=== PATIENT | female | born 1945 | race Caucasian/White ===

== ENCOUNTER 2018-07-18 06:19 | Inpatient (IN) ==
[2018-07-18] MEDS ORDERED: ONDANSETRON 4 MG/2 ML VIAL IV STA (06:46)
[2018-07-18] MEDS ORDERED: HYDROmorphone 2 MG/1 ML VIAL IV STA (06:46)
[2018-07-18] MEDS ORDERED: SODIUM CHLORIDE 0.9% 1,000 ML IV STA (06:46)
[2018-07-18] MEDS ORDERED: MORPHINE 4 MG/1 ML VIAL ONE (07:11)
[2018-07-18] MEDS ORDERED: MORPHINE 4 MG/1 ML VIAL IV STA ×2 (07:15→09:42)
[2018-07-18 07:27] LABS: Basophils # 0.1 10*3/uL (0.0-0.2); Basophils % 0.5 % (0.0-0.8); Eosinophils # 0.2 10*3/uL (0.0-0.87); Eosinophils % 2.1 % (0.00-10.9); Hematocrit 43.1 VOL% (35.7-47.0); Hemoglobin 14.1 GM/DL (12.0-16.0); Immature Granulocytes % 0.5 %; Immature Granulocytes Absolute 0.05 #; Lymphocytes # 1.3 10*3/uL (1.4-4.0); Lymphocytes % 13.2 % (21.3-54.2); Mean Corpuscular HGB Conc 32.7 GM/DL (32-36); Mean Corpuscular Hemoglobin 29 PG (27-34); Mean Corpuscular Volume 87.2 FL (87-102); Mean Platelet Volume 12.5 FL (9.6-12.0); Monocytes # 0.5 10*3/uL (0.11-0.8); Monocytes % 4.9 % (1.7-12.7); Neutrophils # 7.9 10*3/uL (1.4-7.4); Neutrophils % 78.8 % (38.7-73.9); Platelet Count 187 T/CUMM (130-400); Red Blood Count 4.94 MC/CUMM (3.8-5.5); Red Cell Distribution Width 13.5 % (9.3-17.3)
[2018-07-18 08:17] LABS: Apearance,Urine Slightly Hazy (Clear); Bacteria,Urine Occasional /HPF (Few); Bilirubin,Urine Negative (Negative); Blood, Urine Negative (Negative); Glucose,Urine (UA) Negative (Negative); Hyaline Casts,Urine 1 /LPF (0-3); Ketones,Urine 5 mg/dL (Negative); Mucus,Urine Occasional /LPF (Occasional); Nitrite,Urine Negative (Negative); Protein,Urine 30 MG/DL; RBC,Urine 16 /HPF (0-4); Squamous Epithelial Cell,Urine Occasional /HPF (0-10); Urine Color Amber (Yellow); WBC,Urine 66 /HPF (0-6)
[2018-07-18] MEDS ORDERED: metroNIDAZOLE INJ 500 MG in PREMIX 1 EACH IV STA (09:26)
[2018-07-18 09:59] LABS: Alanine Aminotransferase 23 U/L (13-56); Albumin 3.4 G/DL (3.4-5.0); Alkaline Phosphatase 69 U/L (45-117); Aspartate Amino Transferase 15 U/L (0-37); Bilirubin,Total < 0.39 MG/DL (0.2-1.0); Blood Urea Nitrogen 27 MG/DL (7-18); Calcium 9.1 MG/DL (8.5-10.1); Glucose 141 MG/DL (74-106); Osmolality,Calculated 289.1 MOS/KG (273-304); Potassium 3.5 MMOL/L (3.5-5.1); Sodium 142 MMOL/L (136-145); Total Protein 6.5 G/DL (6.4-8.3)
[2018-07-18] MEDS ORDERED: ACETAMINOPHEN 325 MG TABLET PO PRN (11:39)
[2018-07-18] MEDS: MORPHINE 4 MG/1 ML VIAL IV PRN ×2 (13:08→17:10)
[2018-07-18] MEDS: ONDANSETRON 4 MG/2 ML VIAL IV PRN ×2 (13:08→21:10)
[2018-07-18] MEDS ORDERED: CIPROFLOXACIN 400 MG/200 ML PREMIX IV ONE (13:33)
[2018-07-18] MEDS: CIPROFLOXACIN INJ 400 MG in PREMIX 1 EACH IV SCH (13:40)
[2018-07-18] MEDS: metroNIDAZOLE INJ 500 MG in PREMIX 1 EACH IV SCH ×2 (15:07→21:16)
[2018-07-18] MEDS: SODIUM CHLORIDE 0.9% 1,000 ML IV SCH (15:07)
[2018-07-18 18:14] LABS: Hematocrit 46.8 VOL% (35.7-47.0); Hemoglobin 15.1 GM/DL (12.0-16.0)
[2018-07-19] MEDS: MORPHINE 4 MG/1 ML VIAL IV PRN (00:17)
[2018-07-19] MEDS: CIPROFLOXACIN INJ 400 MG in PREMIX 1 EACH IV SCH ×2 (00:22→12:53)
[2018-07-19] MEDS: ONDANSETRON 4 MG/2 ML VIAL IV PRN ×3 (02:31→21:40)
[2018-07-19] MEDS: metroNIDAZOLE INJ 500 MG in PREMIX 1 EACH IV SCH ×4 (02:34→21:29)
[2018-07-19] MEDS: SODIUM CHLORIDE 0.9% 1,000 ML IV SCH ×3 (06:05→23:32)
[2018-07-19 06:23] LABS: Basophils % 0.2 % (0.0-0.8); Hematocrit 43.6 VOL% (35.7-47.0); Hemoglobin 14.2 GM/DL (12.0-16.0); Immature Granulocytes % 0.2 %; Immature Granulocytes Absolute 0.02 #; Lymphocytes # 0.5 10*3/uL (1.4-4.0); Lymphocytes % 4.9 % (21.3-54.2); Mean Corpuscular HGB Conc 32.6 GM/DL (32-36); Mean Corpuscular Hemoglobin 29 PG (27-34); Mean Corpuscular Volume 87.7 FL (87-102); Mean Platelet Volume 12.3 FL (9.6-12.0); Monocytes # 0.9 10*3/uL (0.11-0.8); Monocytes % 8.6 % (1.7-12.7); Neutrophils # 8.6 10*3/uL (1.4-7.4); Neutrophils % 86.1 % (38.7-73.9); Platelet Count 211 T/CUMM (130-400); Red Blood Count 4.97 MC/CUMM (3.8-5.5); Red Cell Distribution Width 13.9 % (9.3-17.3)
[2018-07-19 06:50] LABS: Band Neutrophils 12 % (0-10); Hypochromasia 1+; Lymphocytes 3 % (20-55); Platelet Estimate Adequate; Segmented Neutrophils 76 % (50-85); Total Cells Counted 100
[2018-07-19 07:01] LABS: Calcium 8.5 MG/DL (8.5-10.1); Osmolality,Calculated 290.4 MOS/KG (273-304); Risk Ratio 2.11; Thyroid Stimulating Hormone 1.37 uIU/ml (0.358-3.74)
[2018-07-19] MEDS: PANTOPRAZOLE 40 MG TABLET PO SCH (10:06)
[2018-07-19] MEDS: BISOPROLOL/HCTZ 5-6.25 MG TABLET PO SCH (10:08)
[2018-07-19] MEDS: ENOXAPARIN 40 MG/0.4 ML SYRINGE SUBCUT SCH (10:42)
[2018-07-19] MEDS: SIMVASTATIN 40 MG TABLET PO SCH (21:28)
[2018-07-20] MEDS: CIPROFLOXACIN INJ 400 MG in PREMIX 1 EACH IV SCH ×2 (00:31→12:15)
[2018-07-20] MEDS: ONDANSETRON 4 MG/2 ML VIAL IV PRN ×3 (02:02→09:40)
[2018-07-20] MEDS: metroNIDAZOLE INJ 500 MG in PREMIX 1 EACH IV SCH ×2 (02:04→12:23)
[2018-07-20 05:35] LABS: Basophils % 0.2 % (0.0-0.8); Eosinophils % 0.2 % (0.00-10.9); Hematocrit 34.6 VOL% (35.7-47.0); Hemoglobin 11.2 GM/DL (12.0-16.0); Immature Granulocytes % 0.6 %; Immature Granulocytes Absolute 0.06 #; Lymphocytes # 0.7 10*3/uL (1.4-4.0); Mean Corpuscular HGB Conc 32.4 GM/DL (32-36); Mean Corpuscular Hemoglobin 29 PG (27-34); Mean Platelet Volume 11.5 FL (9.6-12.0); Monocytes # 0.6 10*3/uL (0.11-0.8); Monocytes % 5.9 % (1.7-12.7); Neutrophils % 86.1 % (38.7-73.9); Platelet Count 168 T/CUMM (130-400); Red Blood Count 3.93 MC/CUMM (3.8-5.5); Red Cell Distribution Width 13.9 % (9.3-17.3); White Blood Count 9.3 T/CUMM (4-12)
[2018-07-20 06:03] LABS: Osmolality,Calculated 280.5 MOS/KG (273-304); Potassium 3.5 MMOL/L (3.5-5.1)
[2018-07-20 06:09] LABS: Band Neutrophils 6 % (0-10)
[2018-07-20 06:10] LABS: Hypochromasia 1+; Lymphocytes 7 % (20-55); Microcytosis 1+; Platelet Estimate Adequate; Segmented Neutrophils 84 % (50-85); Total Cells Counted 100
[2018-07-20] MEDS: SODIUM CHLORIDE 0.9% 1,000 ML IV SCH ×3 (09:37→22:58)
[2018-07-20] MEDS: PANTOPRAZOLE 40 MG TABLET PO SCH (09:38)
[2018-07-20] MEDS: BISOPROLOL/HCTZ 5-6.25 MG TABLET PO SCH (09:38)
[2018-07-20] MEDS: ENOXAPARIN 40 MG/0.4 ML SYRINGE SUBCUT SCH (09:39)
[2018-07-20] MEDS: PROMETHAZINE INJ 12.5 MG in SODIUM CHLORIDE 0.9% 50 ML IV PRN ×2 (13:17→19:37)
[2018-07-20] MEDS: SIMVASTATIN 40 MG TABLET PO SCH (22:17)
[2018-07-21] MEDS: CIPROFLOXACIN INJ 400 MG in PREMIX 1 EACH IV SCH ×3 (01:23→23:51)
[2018-07-21] MEDS: PROMETHAZINE INJ 12.5 MG in SODIUM CHLORIDE 0.9% 50 ML IV PRN ×3 (03:15→22:45)
[2018-07-21 04:42] LABS: Basophils % 0.5 % (0.0-0.8); Eosinophils # 0.1 10*3/uL (0.0-0.87); Hematocrit 32.5 VOL% (35.7-47.0); Hemoglobin 10.5 GM/DL (12.0-16.0); Immature Granulocytes % 1.1 %; Immature Granulocytes Absolute 0.09 #; Lymphocytes # 0.5 10*3/uL (1.4-4.0); Lymphocytes % 6.1 % (21.3-54.2); Mean Corpuscular HGB Conc 32.3 GM/DL (32-36); Mean Corpuscular Hemoglobin 29 PG (27-34); Mean Corpuscular Volume 88.3 FL (87-102); Mean Platelet Volume 11.1 FL (9.6-12.0); Monocytes # 0.5 10*3/uL (0.11-0.8); Monocytes % 6.2 % (1.7-12.7); Neutrophils % 85.1 % (38.7-73.9); Platelet Count 149 T/CUMM (130-400); Red Blood Count 3.68 MC/CUMM (3.8-5.5); Red Cell Distribution Width 13.9 % (9.3-17.3); White Blood Count 8.3 T/CUMM (4-12)
[2018-07-21 05:13] LABS: Calcium 7.7 MG/DL (8.5-10.1); Osmolality,Calculated 284.1 MOS/KG (273-304); Potassium 3.2 MMOL/L (3.5-5.1)
[2018-07-21 05:26] LABS: Band Neutrophils 1 % (0-10); Eosinophils 1 % (0-10); Lymphocytes 8 % (20-55); Segmented Neutrophils 83 % (50-85); Total Cells Counted 100
[2018-07-21 05:27] LABS: Hypochromasia 1+; Microcytosis 1+; Platelet Estimate Adequate
[2018-07-21] MEDS ORDERED: POTASSIUM CHLORIDE 20 MEQ TABLET PO PRN (08:59)
[2018-07-21] MEDS: ENOXAPARIN 40 MG/0.4 ML SYRINGE SUBCUT SCH (09:43)
[2018-07-21] MEDS: SODIUM CHLORIDE 0.9% 1,000 ML IV SCH ×3 (09:43→18:59)
[2018-07-21] MEDS: PANTOPRAZOLE 40 MG TABLET PO SCH ×2 (09:43→21:30)
[2018-07-21] MEDS: BISOPROLOL/HCTZ 5-6.25 MG TABLET PO SCH ×2 (09:43→09:49)
[2018-07-21] MEDS: SIMVASTATIN 40 MG TABLET PO SCH (21:30)
[2018-07-22 07:01] LABS: Basophils % 0.5 % (0.0-0.8); Eosinophils # 0.2 10*3/uL (0.0-0.87); Eosinophils % 2.2 % (0.00-10.9); Hematocrit 32.4 VOL% (35.7-47.0); Hemoglobin 10.4 GM/DL (12.0-16.0); Immature Granulocytes % 0.8 %; Immature Granulocytes Absolute 0.06 #; Lymphocytes # 0.7 10*3/uL (1.4-4.0); Lymphocytes % 9.5 % (21.3-54.2); Mean Corpuscular HGB Conc 32.1 GM/DL (32-36); Mean Corpuscular Hemoglobin 28 PG (27-34); Mean Corpuscular Volume 86.9 FL (87-102); Mean Platelet Volume 11.6 FL (9.6-12.0); Monocytes # 0.6 10*3/uL (0.11-0.8); Monocytes % 7.3 % (1.7-12.7); Neutrophils # 6.1 10*3/uL (1.4-7.4); Neutrophils % 79.7 % (38.7-73.9); Platelet Count 189 T/CUMM (130-400); Red Blood Count 3.73 MC/CUMM (3.8-5.5); Red Cell Distribution Width 13.9 % (9.3-17.3); White Blood Count 7.7 T/CUMM (4-12)
[2018-07-22 07:16] LABS: Calcium 7.9 MG/DL (8.5-10.1); Osmolality,Calculated 279.3 MOS/KG (273-304); Potassium 2.8 MMOL/L (3.5-5.1)
[2018-07-22] MEDS: POTASSIUM CHLORIDE INJ 20 MEQ, SODIUM CHLORIDE 23.4% CONC INJ 38.5 MEQ in STERILE WATER... IV SCH ×2 (08:48→22:46)
[2018-07-22] MEDS: PANTOPRAZOLE 40 MG TABLET PO SCH ×2 (09:19→20:37)
[2018-07-22] MEDS: ENOXAPARIN 40 MG/0.4 ML SYRINGE SUBCUT SCH (09:19)
[2018-07-22] MEDS: BISOPROLOL/HCTZ 5-6.25 MG TABLET PO SCH (09:19)
[2018-07-22] MEDS ORDERED: CALCIUM CARBONATE CHEW 500 MG TABLET PO PRN (11:52)
[2018-07-22] MEDS: SODIUM CHLORIDE 0.9% 1,000 ML IV SCH (14:43)
[2018-07-22] MEDS: ONDANSETRON 4 MG/2 ML VIAL IV PRN (17:06)
[2018-07-22] MEDS: SIMVASTATIN 40 MG TABLET PO SCH (20:37)
[2018-07-23 05:34] LABS: Basophils % 0.4 % (0.0-0.8); Eosinophils # 0.2 10*3/uL (0.0-0.87); Eosinophils % 2.7 % (0.00-10.9); Hematocrit 30.6 VOL% (35.7-47.0); Hemoglobin 10.1 GM/DL (12.0-16.0); Immature Granulocytes Absolute 0.07 #; Lymphocytes # 0.7 10*3/uL (1.4-4.0); Lymphocytes % 9.8 % (21.3-54.2); Mean Corpuscular Hemoglobin 29 PG (27-34); Mean Corpuscular Volume 86.2 FL (87-102); Mean Platelet Volume 11.4 FL (9.6-12.0); Monocytes # 0.6 10*3/uL (0.11-0.8); Monocytes % 8.2 % (1.7-12.7); Neutrophils # 5.7 10*3/uL (1.4-7.4); Neutrophils % 77.9 % (38.7-73.9); Platelet Count 190 T/CUMM (130-400); Red Blood Count 3.55 MC/CUMM (3.8-5.5); Red Cell Distribution Width 13.7 % (9.3-17.3); White Blood Count 7.3 T/CUMM (4-12)
[2018-07-23 05:59] LABS: Calcium 7.9 MG/DL (8.5-10.1); Osmolality,Calculated 277.4 MOS/KG (273-304)
[2018-07-23] MEDS: POTASSIUM CHLORIDE RIDER 10 MEQ in PREMIX 1 EACH IV PRN ×5 (09:07→20:27)
[2018-07-23] MEDS: ENOXAPARIN 40 MG/0.4 ML SYRINGE SUBCUT SCH (09:11)
[2018-07-23] MEDS: PANTOPRAZOLE 40 MG TABLET PO SCH ×2 (09:11→20:26)
[2018-07-23] MEDS: BISOPROLOL/HCTZ 5-6.25 MG TABLET PO SCH (09:12)
[2018-07-23] MEDS: SIMVASTATIN 40 MG TABLET PO SCH (20:26)
[2018-07-23] MEDS: POTASSIUM CHLORIDE INJ 20 MEQ, SODIUM CHLORIDE 23.4% CONC INJ 38.5 MEQ in STERILE WATER... IV SCH ×2 (20:27→23:26)
[2018-07-24 05:29] LABS: Basophils % 0.6 % (0.0-0.8); Eosinophils # 0.2 10*3/uL (0.0-0.87); Eosinophils % 3.2 % (0.00-10.9); Hematocrit 31.6 VOL% (35.7-47.0); Hemoglobin 10.4 GM/DL (12.0-16.0); Immature Granulocytes % 1.3 %; Immature Granulocytes Absolute 0.08 #; Lymphocytes # 0.6 10*3/uL (1.4-4.0); Lymphocytes % 9.6 % (21.3-54.2); Mean Corpuscular HGB Conc 32.9 GM/DL (32-36); Mean Corpuscular Hemoglobin 29 PG (27-34); Mean Corpuscular Volume 86.6 FL (87-102); Mean Platelet Volume 11.6 FL (9.6-12.0); Monocytes # 0.5 10*3/uL (0.11-0.8); Monocytes % 8.7 % (1.7-12.7); Neutrophils # 4.8 10*3/uL (1.4-7.4); Neutrophils % 76.6 % (38.7-73.9); Platelet Count 193 T/CUMM (130-400); Red Blood Count 3.65 MC/CUMM (3.8-5.5); Red Cell Distribution Width 13.8 % (9.3-17.3); White Blood Count 6.2 T/CUMM (4-12)
[2018-07-24 05:48] LABS: Calcium 8.1 MG/DL (8.5-10.1); Osmolality,Calculated 273.5 MOS/KG (273-304); Potassium 3.4 MMOL/L (3.5-5.1)
[2018-07-24] MEDS: POTASSIUM CHLORIDE INJ 20 MEQ, SODIUM CHLORIDE 23.4% CONC INJ 38.5 MEQ in STERILE WATER... IV SCH ×3 (08:46→16:42)
[2018-07-24] MEDS: PANTOPRAZOLE 40 MG TABLET PO SCH ×2 (09:18→21:59)
[2018-07-24] MEDS: ENOXAPARIN 40 MG/0.4 ML SYRINGE SUBCUT SCH (09:19)
[2018-07-24] MEDS: BISOPROLOL/HCTZ 5-6.25 MG TABLET PO SCH (09:20)
[2018-07-24] MEDS: POTASSIUM CHLORIDE RIDER 10 MEQ in PREMIX 1 EACH IV PRN ×2 (11:14→14:44)
[2018-07-24] MEDS ORDERED: BISACODYL 5 MG TABLET PO ONE (12:00)
[2018-07-24] MEDS ORDERED: POLYETHYLENE GLYCOL POWDER 255 GM BOTTLE PO ONE (13:00)
[2018-07-24] MEDS: ONDANSETRON 4 MG/2 ML VIAL IV PRN (17:11)
[2018-07-24] MEDS: SIMVASTATIN 40 MG TABLET PO SCH (21:59)
[2018-07-25] MEDS: POTASSIUM CHLORIDE INJ 20 MEQ, SODIUM CHLORIDE 23.4% CONC INJ 38.5 MEQ in STERILE WATER... IV SCH ×2 (00:52→10:03)
[2018-07-25 02:53] LABS: Basophils % 0.4 % (0.0-0.8); Eosinophils # 0.1 10*3/uL (0.0-0.87); Eosinophils % 1.7 % (0.00-10.9); Hematocrit 34.4 VOL% (35.7-47.0); Hemoglobin 11.2 GM/DL (12.0-16.0); Immature Granulocytes % 0.7 %; Immature Granulocytes Absolute 0.06 #; Lymphocytes # 0.7 10*3/uL (1.4-4.0); Mean Corpuscular HGB Conc 32.6 GM/DL (32-36); Mean Corpuscular Hemoglobin 28 PG (27-34); Mean Platelet Volume 11.3 FL (9.6-12.0); Monocytes # 0.7 10*3/uL (0.11-0.8); Monocytes % 8.8 % (1.7-12.7); Neutrophils # 6.6 10*3/uL (1.4-7.4); Neutrophils % 79.4 % (38.7-73.9); Platelet Count 247 T/CUMM (130-400); Red Cell Distribution Width 13.8 % (9.3-17.3); White Blood Count 8.3 T/CUMM (4-12)
[2018-07-25 03:00] LABS: INR 1.1; PT Patient Result 11.7 SECS
[2018-07-25] MEDS ORDERED: MAGNESIUM CITRATE 300 ML BOTTLE PO ONE (06:07)
[2018-07-25] MEDS: ONDANSETRON 4 MG/2 ML VIAL IV PRN (06:15)
[2018-07-25] MEDS ORDERED: LIDOCAINE 2% 5 ML VIAL ONE (10:00)
[2018-07-25] MEDS ORDERED: ONDANSETRON 4 MG/2 ML VIAL ONE (10:00)
[2018-07-25] MEDS ORDERED: PROPOFOL 200 MG/20 ML VIAL IV ONE (10:00)
[2018-07-25] MEDS ORDERED: PHENYLEPHRINE 1 MG/10 ML SYRINGE IV ONE (10:00)
[2018-07-25] MEDS: PANTOPRAZOLE 40 MG TABLET PO SCH ×2 (15:05→22:34)
[2018-07-25] MEDS: BISOPROLOL/HCTZ 5-6.25 MG TABLET PO SCH (15:06)
[2018-07-25] MEDS: ENOXAPARIN 40 MG/0.4 ML SYRINGE SUBCUT SCH (15:09)
[2018-07-25] MEDS: SIMVASTATIN 40 MG TABLET PO SCH (22:34)
[2018-07-26] MEDS: POTASSIUM CHLORIDE INJ 20 MEQ, SODIUM CHLORIDE 23.4% CONC INJ 38.5 MEQ in STERILE WATER... IV SCH ×3 (01:22→14:39)
[2018-07-26 05:54] LABS: Basophils % 0.5 % (0.0-0.8); Eosinophils # 0.2 10*3/uL (0.0-0.87); Eosinophils % 2.6 % (0.00-10.9); Hematocrit 33.4 VOL% (35.7-47.0); Hemoglobin 10.9 GM/DL (12.0-16.0); Immature Granulocytes % 0.5 %; Immature Granulocytes Absolute 0.03 #; Lymphocytes # 0.8 10*3/uL (1.4-4.0); Lymphocytes % 12.3 % (21.3-54.2); Mean Corpuscular HGB Conc 32.6 GM/DL (32-36); Mean Corpuscular Hemoglobin 29 PG (27-34); Mean Corpuscular Volume 87.2 FL (87-102); Mean Platelet Volume 11.3 FL (9.6-12.0); Monocytes # 0.5 10*3/uL (0.11-0.8); Monocytes % 7.5 % (1.7-12.7); Neutrophils # 5.1 10*3/uL (1.4-7.4); Neutrophils % 76.6 % (38.7-73.9); Platelet Count 250 T/CUMM (130-400); Red Blood Count 3.83 MC/CUMM (3.8-5.5); Red Cell Distribution Width 13.9 % (9.3-17.3); White Blood Count 6.6 T/CUMM (4-12)
[2018-07-26 06:17] LABS: Calcium 8.3 MG/DL (8.5-10.1); Osmolality,Calculated 273.5 MOS/KG (273-304); Potassium 4.1 MMOL/L (3.5-5.1)
[2018-07-26] MEDS: BISOPROLOL/HCTZ 5-6.25 MG TABLET PO SCH (09:26)
[2018-07-26] MEDS: ENOXAPARIN 40 MG/0.4 ML SYRINGE SUBCUT SCH (09:26)
[2018-07-26] MEDS: PANTOPRAZOLE 40 MG TABLET PO SCH (09:26)
[2018-07-26 12:40] VITALS: BP 128/72
== END 2018-07-26 15:09 | disposition home or self-care (01) | DRG 394 ==
LOC: N.ED 06:19 → SUATTDRO 09:30 → N.EDINP 09:30 → N.5E 13:28
PROVIDERS: ADMIT Internal Medicine; ATTEND Internal Medicine